=== PATIENT | female | born 1990 | race Caucasian/White ===

== ENCOUNTER 2020-11-13 14:51 | Emergency (ER) | payer OTHER ==
[2020-11-13 17:46] LABS: RED BLOOD COUNT 4.67 M/UL (4.00-5.10); WHITE BLOOD COUNT 11.4 K/UL (4.5-11.0)
[2020-11-13 18:13] LABS: BUN/CREATININE RATIO 22 (0-10)
[2020-11-13] MEDS ORDERED: CARAFATE1 GM PO (22:44)
[2020-11-13] MEDS ORDERED: PEPCID40 MG PO (22:44)
[2020-11-13] MEDS ORDERED: AUGMENTIN 875-1 EACH PO (22:44)
== END 2020-11-13 23:20 | disposition home or self-care (01) ==
LOC: ER1 14:51
PROVIDERS: Emergency Medicine
DX: K64.4 Residual hemorrhoidal skin tags (principal); K62.5 Hemorrhage of anus and rectum; K02.9 Dental caries, unspecified; K21.9 Gastro-esophageal reflux disease without esophagitis; J45.909 Unspecified asthma, uncomplicated; Z86.19 Personal history of other infectious and parasitic diseases; F17.210 Nicotine dependence, cigarettes, uncomplicated; Z88.1 Allergy status to other antibiotic agents; Z88.2 Allergy status to sulfonamides; Z88.5 Allergy status to narcotic agent; Z79.82 Long term (current) use of aspirin; Z79.899 Other long term (current) drug therapy
CPT/HCPCS: 36415; 80053; 82272; 83690; 84703; 85025; 85610; 85730; 96365; 96372; 96375; 99285; J1885; J2405; Q9967

== ENCOUNTER 2020-11-27 20:25 | Emergency (ER) | payer OTHER ==
[~2020-11-27 20:25] MED LIST: AUGMENTIN 875-1 EACH PO; CARAFATE1 GM PO; PEPCID40 MG PO
[2020-11-27] MEDS ORDERED: PROAIR DIGIHAL90 MCG INH (22:34)
[2020-11-27] MEDS ORDERED: MEDROL DOSEPAK 24 MG PO (22:34)
== END 2020-11-27 22:54 | disposition home or self-care (01) ==
LOC: ER1 20:25
DX: J06.9 Acute upper respiratory infection, unspecified (principal); J45.909 Unspecified asthma, uncomplicated; F17.200 Nicotine dependence, unspecified, uncomplicated; Z20.822 Contact with and (suspected) exposure to COVID-19
CPT/HCPCS: 0240U; 71045; 99283